=== PATIENT | female | born 1950 | race Caucasian/White ===

== ENCOUNTER 2019-09-26 11:24 | Emergency (ER) | payer MEDICARE ==
[~2019-09-26] VITALS: Ht 165.1 cm; Wt 73.0 kg
[2019-09-26] MEDS ORDERED: ACETAMINOPHEN WITH CODEINE 300/30MG TABLET PO ONE (13:45)
[2019-09-26 15:11] VITALS: BP 163/78
== END 2019-09-26 15:12 | disposition home or self-care (01) ==
LOC: ER 11:32
DX: M17.11 Unilateral primary osteoarthritis, right knee (principal)
CPT/HCPCS: 73562; 99283